=== PATIENT | male | born 1960 | race Caucasian/White ===

== ENCOUNTER → 2017-01-11 | Outpatient (CLI) | payer BC | LOC: LAB 16:30 | DX: Z00.00 Encounter for general adult medical examination without abnormal findings (principal); Z12.11 Encounter for screening for malignant neoplasm of colon; Z12.5 Encounter for screening for malignant neoplasm of prostate ==

== ENCOUNTER → 2017-01-15 | Outpatient (CLI) | payer BC | LOC: LAB 12:58 | DX: Z00.00 Encounter for general adult medical examination without abnormal findings (principal); Z12.11 Encounter for screening for malignant neoplasm of colon ==

== ENCOUNTER 2017-03-06 23:34 | Emergency (ER) | payer BC ==
[~2017-03-06] VITALS: Ht 172.7 cm; Wt 93.2 kg
[~2017-03-06 23:34] MED LIST: DYAZIDE 37.5-21 EACH PO; NORCO 325 MG-51 TA1 PO; NORVASC 5MG5 MG/TAB PO; PHENTERMINE H37.5 M2 PO; SILDENAFIL CITR20 MG PO; SINGULAIR PO; TOPROL XL 25MG25 MG PO
[2017-03-06] MEDS ORDERED: FLOMAX0.4 MG PO (23:44)
[2017-03-07 00:28] VITALS: BP 105/75
[2017-03-07] MEDS ORDERED: CIPRO500 M1 PO (07:48)
== END 2017-03-07 00:28 | disposition home or self-care (01) ==
LOC: ED 23:34
DX: R33.9 Retention of urine, unspecified (principal); N39.0 Urinary tract infection, site not specified; R31.9 Hematuria, unspecified; I10 Essential (primary) hypertension; F41.9 Anxiety disorder, unspecified
CPT/HCPCS: A4358

== ENCOUNTER → 2018-12-04 | Outpatient (CLI) | payer BC ==
[~2018-12-04] MED LIST changes: +CIPRO500 M1 PO; +FLOMAX0.4 MG PO
[2018-12-04 12:34] LABS: EOS # 0.1 (0.04-0.40); EOS % 1.4 % (0.0-4.0); HEMATOCRIT 53.9 % (42.0-52.0); HEMOGLOBIN 18.1 g/dL (13.5-18.0); LYMPH# 1.5 (1.50-4.00); MEAN CELL VOLUME 89 fl (78-100); MEAN CORPUSCULAR HEMOGLOBIN 30 pg (27-31); MEAN CORPUSCULAR HGB CONC 34 g/dL (33-37); MEAN PLATELET VOLUME 9.7 fl (7.4-10.4); MONO # 0.8 (0.20-0.80); NEU # 4.8 (1.40-6.50); PLATELET COUNT 163 K/mm3 (130-400); RED BLOOD COUNT 6.04 M/mm3 (4.20-5.60); RED CELL DISTRIBUTION WIDTH 14.8 % (11.5-14.5); WHITE BLOOD COUNT 7.3 K/mm3 (4.8-10.8)
[2018-12-04 12:41] LABS: ALBUMIN 4.3 g/dL (3.5-5.0); POTASSIUM 3.9 mmol/L (3.5-5.1)
[2018-12-04 12:42] LABS: CALCIUM 9.5 mg/dL (8.3-10.5)
[2018-12-04 12:44] LABS: TOTAL PROTEIN 7.4 g/dL (6.4-8.3)
[2018-12-04 12:46] LABS: TOTAL BILIRUBIN 1.4 mg/dL (0.2-1.2)
[2018-12-04 12:57] LABS: URINE APPEARANCE CLEAR; URINE BILIRUBIN NEGATIVE (NEGATIVE); URINE BLOOD NEGATIVE (NEGATIVE); URINE COLOR YELLOW; URINE GLUCOSE NEGATIVE (NEGATIVE); URINE KETONE NEGATIVE (NEGATIVE); URINE LEUKOCYTE ESTERASE NEGATIVE (NEGATIVE); URINE NITRATE NEGATIVE (NEGATIVE); URINE PROTEIN(semi-quant) NEGATIVE (NEGATIVE); URINE UROBILINOGEN NORMAL (NORMAL); URINE WBC 0-1 /hpf (0-3)
[2018-12-04 13:37] LABS: ERYTHROCYTE SEDIMENTATION RATE 3 mm/hr (0-20)
[2018-12-04 22:53] LABS: CREATININE OTHER SOURCE 37 mg/dL (())
== END ==
LOC: LAB 12:17
PROVIDERS: Internal Medicine
DX: Z00.00 Encounter for general adult medical examination without abnormal findings (principal); Z12.5 Encounter for screening for malignant neoplasm of prostate; Z12.11 Encounter for screening for malignant neoplasm of colon; R73.02 Impaired glucose tolerance (oral)

== ENCOUNTER → 2019-04-24 | Outpatient (CLI) | payer BC | LOC: LAB 07:53 | DX: M10.9 Gout, unspecified (principal) ==

== ENCOUNTER → 2020-07-29 | Outpatient (CLI) | payer OTHER ==
[2020-07-29 10:19] LABS: URINE APPEARANCE CLEAR; URINE BILIRUBIN NEGATIVE (NEGATIVE); URINE BLOOD NEGATIVE (NEGATIVE); URINE COLOR YELLOW; URINE GLUCOSE NEGATIVE (NEGATIVE); URINE KETONE NEGATIVE (NEGATIVE); URINE LEUKOCYTE ESTERASE NEGATIVE (NEGATIVE); URINE NITRATE NEGATIVE (NEGATIVE); URINE PROTEIN(semi-quant) NEGATIVE (NEGATIVE); URINE UROBILINOGEN NORMAL (NORMAL); URINE WBC 0-1 /hpf (0-3)
[2020-07-29 10:21] LABS: EOS # 0.3 (0.04-0.40); HEMATOCRIT 55.5 % (42.0-52.0); HEMOGLOBIN 17.8 g/dL (13.5-18.0); LYMPH# 1.3 (1.50-4.00); MEAN CELL VOLUME 92 fl (78-100); MEAN CORPUSCULAR HEMOGLOBIN 30 pg (27-31); MEAN CORPUSCULAR HGB CONC 32 g/dL (33-37); MEAN PLATELET VOLUME 10.5 fl (7.4-10.4); MONO # 0.5 (0.20-0.80); NEU # 4.1 (1.40-6.50); PLATELET COUNT 157 K/mm3 (130-400); POTASSIUM 5.4 mmol/L (3.5-5.1); RED BLOOD COUNT 6.01 M/mm3 (4.20-5.60); RED CELL DISTRIBUTION WIDTH 14.5 % (11.5-14.5); WHITE BLOOD COUNT 6.2 K/mm3 (4.8-10.8)
[2020-07-29 10:22] LABS: ALBUMIN 4.3 g/dL (3.4-4.8)
[2020-07-29 10:23] LABS: CALCIUM 9.3 mg/dL (8.3-10.5); EOS % 5.3 % (0.0-4.0)
[2020-07-29 10:24] LABS: TOTAL PROTEIN 7.2 g/dL (6.2-8.1)
[2020-07-29 10:26] LABS: TOTAL BILIRUBIN 0.9 mg/dL (0.2-1.2)
[2020-07-29 10:31] LABS: MAGNESIUM 2.08 mg/dL (1.60-2.60)
[2020-07-29 11:23] LABS: ERYTHROCYTE SEDIMENTATION RATE 1 mm/hr (0-20)
[2020-07-29 23:01] LABS: CREATININE OTHER SOURCE 24 mg/dL (())
== END ==
LOC: LAB 09:45
PROVIDERS: Internal Medicine
DX: Z12.5 Encounter for screening for malignant neoplasm of prostate (principal); Z12.11 Encounter for screening for malignant neoplasm of colon; Z00.00 Encounter for general adult medical examination without abnormal findings

== ENCOUNTER → 2021-12-09 | Outpatient (CLI) | payer OTHER ==
[2021-12-09 14:39] LABS: BASO # 0.03 K/mm3 (0.02-0.10); EOS # 0.13 K/mm3 (0.04-0.40); EOS % 1.9 % (0.0-4.0); HEMATOCRIT 58.9 % (42.0-52.0); HEMOGLOBIN 19.6 g/dL (13.5-18.0); LYMPH# 1.32 K/mm3 (1.50-4.00); MEAN CELL VOLUME 92 fl (78-100); MEAN CORPUSCULAR HEMOGLOBIN 30 pg (27-31); MEAN CORPUSCULAR HGB CONC 33 g/dL (33-37); MEAN PLATELET VOLUME 9.8 fl (7.4-10.4); MONO # 0.59 K/mm3 (0.20-0.80); NEU # 4.83 K/mm3 (1.40-6.50); PLATELET COUNT 160 K/mm3 (130-400); RED BLOOD COUNT 6.44 M/mm3 (4.20-5.60); RED CELL DISTRIBUTION WIDTH 14.3 % (11.5-14.5)
[2021-12-09 15:07] LABS: POTASSIUM 4.3 mmol/L (3.5-5.1)
[2021-12-09 15:08] LABS: ALBUMIN 4.3 g/dL (3.4-4.8)
[2021-12-09 15:09] LABS: CALCIUM 9.9 mg/dL (8.3-10.5)
[2021-12-09 15:10] LABS: TOTAL PROTEIN 7.1 g/dL (6.2-8.1)
[2021-12-09 15:12] LABS: TOTAL BILIRUBIN 1.7 mg/dL (0.2-1.2)
[2021-12-09 15:18] LABS: MAGNESIUM 1.87 mg/dL (1.60-2.60)
[2021-12-09 16:21] LABS: URINE APPEARANCE CLEAR; URINE BILIRUBIN NEGATIVE (NEGATIVE); URINE BLOOD NEGATIVE (NEGATIVE); URINE COLOR YELLOW; URINE GLUCOSE NEGATIVE (NEGATIVE); URINE KETONE NEGATIVE (NEGATIVE); URINE LEUKOCYTE ESTERASE NEGATIVE (NEGATIVE); URINE NITRATE NEGATIVE (NEGATIVE); URINE PROTEIN(semi-quant) NEGATIVE (NEGATIVE); URINE UROBILINOGEN NORMAL (NORMAL); URINE WBC 0-1 /hpf (0-3)
[2021-12-10 00:50] LABS: CREATININE OTHER SOURCE 34 mg/dL (())
[2021-12-10 02:22] LABS: TESTOSTERONE >1500 ng/dL (221-716)
== END ==
LOC: LAB 14:25
PROVIDERS: Internal Medicine
DX: Z00.00 Encounter for general adult medical examination without abnormal findings (principal); Z12.5 Encounter for screening for malignant neoplasm of prostate; Z12.11 Encounter for screening for malignant neoplasm of colon

== ENCOUNTER → 2023-08-29 | Outpatient (CLI) | payer OTHER ==
[2023-08-29 12:00] LABS: BASO # 0.03 K/mm3 (0.02-0.10); EOS # 0.07 K/mm3 (0.04-0.40); EOS % 1.1 % (0.0-4.0); HEMATOCRIT 53.8 % (42.0-52.0); HEMOGLOBIN 17.8 g/dL (13.5-18.0); LYMPH# 1.74 K/mm3 (1.50-4.00); MEAN CELL VOLUME 91 fl (78-100); MEAN CORPUSCULAR HEMOGLOBIN 30 pg (27-31); MEAN CORPUSCULAR HGB CONC 33 g/dL (33-37); MEAN PLATELET VOLUME 10.2 fl (7.4-10.4); MONO # 0.49 K/mm3 (0.20-0.80); NEU # 3.97 K/mm3 (1.40-6.50); PLATELET COUNT 162 K/mm3 (130-400); RED CELL DISTRIBUTION WIDTH 13.5 % (11.5-14.5); WHITE BLOOD COUNT 6.3 K/mm3 (4.8-10.8)
[2023-08-29 12:04] LABS: ALBUMIN 4.3 g/dL (3.4-4.8)
[2023-08-29 12:05] LABS: CALCIUM 9.9 mg/dL (8.3-10.5)
[2023-08-29 12:06] LABS: TOTAL PROTEIN 7.1 g/dL (6.2-8.1)
[2023-08-29 12:08] LABS: TOTAL BILIRUBIN 1.3 mg/dL (0.2-1.2)
[2023-08-29 12:13] LABS: MAGNESIUM 1.84 mg/dL (1.60-2.60)
[2023-08-29 12:25] LABS: PH-URINE 7.5 (5.0 - 8.0); URINE APPEARANCE CLEAR (CLEAR); URINE BILIRUBIN NEGATIVE (NEGATIVE); URINE BLOOD NEGATIVE (NEGATIVE); URINE COLOR YELLOW (YELLOW); URINE GLUCOSE NEGATIVE (NEGATIVE); URINE KETONE NEGATIVE (NEGATIVE); URINE LEUKOCYTE ESTERASE NEGATIVE (NEGATIVE); URINE NITRATE NEGATIVE (NEGATIVE); URINE PROTEIN(semi-quant) NEGATIVE (NEGATIVE); URINE WBC 0-1 /hpf (0-3)
[2023-08-29 22:09] LABS: CREATININE OTHER SOURCE 62 mg/dL (47-110); HEPATITIS C VIRUS ANTIBODY Negative (Negative)
[2023-08-30 14:12] LABS: TESTOSTERONE 252 ng/dL (221-716)
== END ==
LOC: LAB 11:38
PROVIDERS: Internal Medicine
DX: Z00.00 Encounter for general adult medical examination without abnormal findings (principal); Z12.5 Encounter for screening for malignant neoplasm of prostate; Z12.11 Encounter for screening for malignant neoplasm of colon; Z11.59 Encounter for screening for other viral diseases

== ENCOUNTER → 2024-03-03 | Outpatient (CLI) | payer OTHER | LOC: LAB 10:11 | DX: N39.0 Urinary tract infection, site not specified (principal) ==

== ENCOUNTER → 2024-04-04 | Outpatient (CLI) | payer OTHER | LOC: LAB 09:18 | DX: E11.9 Type 2 diabetes mellitus without complications (principal) ==

== ENCOUNTER → 2024-05-19 | Day surgery (SDC) | payer OTHER | LOC: MSO 07:56 | DX: Z12.11 Encounter for screening for malignant neoplasm of colon (principal); D12.3 Benign neoplasm of transverse colon; G47.33 Obstructive sleep apnea (adult) (pediatric); E11.9 Type 2 diabetes mellitus without complications; Z79.84 Long term (current) use of oral hypoglycemic drugs | CPT/HCPCS: 00812; J2704; J7120 ==

== ENCOUNTER → 2024-09-08 | Outpatient (CLI) | payer MEDICARE, BC ==
[2024-09-08 09:43] LABS: BASO # 0.03 K/mm3 (0.02-0.10); EOS # 0.39 K/mm3 (0.04-0.40); EOS % 6.2 % (0.0-4.0); HEMATOCRIT 53.5 % (42.0-52.0); HEMOGLOBIN 17.9 g/dL (13.5-18.0); LYMPH# 1.21 K/mm3 (1.50-4.00); MEAN CELL VOLUME 93 fl (78-100); MEAN CORPUSCULAR HEMOGLOBIN 31 pg (27-31); MEAN CORPUSCULAR HGB CONC 34 g/dL (33-37); MEAN PLATELET VOLUME 9.6 fl (7.4-10.4); MONO # 0.45 K/mm3 (0.20-0.80); NEU # 4.19 K/mm3 (1.40-6.50); PLATELET COUNT 156 K/mm3 (130-400); RED BLOOD COUNT 5.78 M/mm3 (4.20-5.60); RED CELL DISTRIBUTION WIDTH 13.7 % (11.5-14.5); WHITE BLOOD COUNT 6.3 K/mm3 (4.8-10.8)
[2024-09-08 09:52] LABS: ALBUMIN 4.2 g/dL (3.4-4.8); CALCIUM 9.7 mg/dL (8.3-10.5)
[2024-09-08 09:54] LABS: TOTAL PROTEIN 7.3 g/dL (6.2-8.1)
[2024-09-08 09:56] LABS: TOTAL BILIRUBIN 0.6 mg/dL (0.2-1.2)
[2024-09-08 10:01] LABS: MAGNESIUM 1.82 mg/dL (1.60-2.60)
[2024-09-08 10:13] LABS: URINE APPEARANCE CLEAR (CLEAR); URINE COLOR YELLOW (YELLOW)
[2024-09-08 10:14] LABS: PH-URINE 8.5 (5.0 - 8.0); URINE BILIRUBIN NEGATIVE (NEGATIVE); URINE BLOOD NEGATIVE (NEGATIVE); URINE GLUCOSE NEGATIVE (NEGATIVE); URINE KETONE NEGATIVE (NEGATIVE); URINE LEUKOCYTE ESTERASE NEGATIVE (NEGATIVE); URINE NITRATE NEGATIVE (NEGATIVE); URINE PROTEIN(semi-quant) NEGATIVE (NEGATIVE); URINE WBC 0-1 /hpf (0-3)
== END ==
LOC: LAB 09:10
PROVIDERS: Internal Medicine
DX: Z12.11 Encounter for screening for malignant neoplasm of colon (principal); Z12.5 Encounter for screening for malignant neoplasm of prostate; I10 Essential (primary) hypertension; E29.1 Testicular hypofunction; E78.2 Mixed hyperlipidemia; E11.9 Type 2 diabetes mellitus without complications; M10.9 Gout, unspecified

== ENCOUNTER → 2024-09-10 | Outpatient (REF) | payer MEDICARE, BC | LOC: LAB 09:13 | DX: Z12.5 Encounter for screening for malignant neoplasm of prostate (principal); Z12.11 Encounter for screening for malignant neoplasm of colon; I10 Essential (primary) hypertension; E29.1 Testicular hypofunction; E11.9 Type 2 diabetes mellitus without complications; M10.9 Gout, unspecified ==